=== PATIENT | male | born 1995 | race Caucasian/White ===

== ENCOUNTER 2022-11-27 19:27 | Emergency (ER) | payer SELFPAY ==
[~2022-11-27] VITALS: Ht 177.8 cm; Wt 70.0 kg
[2022-11-27 19:50] VITALS: BP 173/88
== END 2022-11-28 05:11 | disposition home or self-care (01) ==
LOC: ER 19:27
DX: R07.89 Other chest pain (principal); F12.10 Cannabis abuse, uncomplicated
CPT/HCPCS: 71045; 93005; 99283